=== PATIENT | male | born 1960 | race Caucasian/White ===

== ENCOUNTER → 2020-03-06 08:41 | Outpatient (CLI) | payer OTHER, SELFPAY ==
--- NOTE | 2020-03-06 08:47 | DI.RAD.S_ITS ---
PROCEDURE: XR CERVICAL SPINE 4V OR 5V INDICATIONS: Radiculopathy TECHNIQUE: 5 views of the cervical spine acquired. COMPARISON: None. FINDINGS: Bones: No fractures or dislocations to the T1 level. Oblique images demonstrate no bony foraminal stenoses. There is a moderately severe degree of degenerative disc disease at C5-C6 and C6-C7, with anterior and posterior projecting osteophytes. On the oblique views foraminal stenosis appears present to a mild to moderate degree at these 2 levels, most prominent at C5-6. Soft tissues: No prevertebral soft tissue swelling. IMPRESSION: No trauma found. No subluxation present. Moderately severe degenerative disc disease and facet osteoarthritis from C5-C7 to the degree that significant spinal and foraminal stenosis likely would be present, symmetric. Dictated by: Antonino Betancourt M.D. on 03/06/2020 at 9:42 Approved by: Antonino Betancourt M.D. on 03/06/2020 at 9:43
--- NOTE | 2020-03-06 08:47 | DI.RAD.S_ITS ---
PROCEDURE: XR LUMBAR SPINE MIN 4V INDICATIONS: Radiculopathy TECHNIQUE: 4 views of the lumbar spine were acquired. COMPARISON: None. FINDINGS: Bones: 5 nonrib-bearing vertebrae are present. There is normal bony alignment. Degenerative disc disease is only mild along the lumbosacral spine. Facet osteoarthritis becomes progressively more prominent from L3 inferiorly and most pronounced at L5-S1. No vertebral body compression fractures. No suspicious bony lesions. Soft tissues: Overlying bowel gas pattern is normal. No suspicious soft tissue calcifications. Oblique images: No pars defects. IMPRESSION: The degenerative changes along the LS spine are relatively mild at the disc spaces but more prominent at the facet joints especially L4-5 and L5-S1. Dictated by: Antonino Betancourt M.D. on 03/06/2020 at 9:43 Approved by: Antonino Betancourt M.D. on 03/06/2020 at 9:44
== END ==
PROVIDERS: Referring Provider Physical Medicine & Rehabilitation; Visit Provider Physical Medicine & Rehabilitation
DX: M50.122 Cervical disc disorder at C5-C6 level with radiculopathy (principal); M47.22 Other spondylosis with radiculopathy, cervical region; M51.17 Intervertebral disc disorders with radiculopathy, lumbosacral region; M47.26 Other spondylosis with radiculopathy, lumbar region; M47.27 Other spondylosis with radiculopathy, lumbosacral region
CPT/HCPCS: 72050; 72110

== ENCOUNTER → 2020-05-03 18:37 | Outpatient (CLI) | payer OTHER, SELFPAY ==
--- NOTE | 2020-05-03 18:40 | DI.RAD.S_ITS ---
PROCEDURE: XR SHOULDER RT MIN 2V INDICATIONS: Right shoulder impingement syndrome TECHNIQUE: 3 views of the shoulder were acquired. COMPARISON: None. FINDINGS: Bones: High-riding humeral head which may indicate rotator cuff tear. No fractures or dislocations. No suspicious bony lesions. Visualized ribs appear intact. Soft tissues: No suspicious soft tissue calcifications. IMPRESSION: High-riding humeral head which may indicate chronic rotator cuff tear. Dictated by: Lizandro Ferguson M.D. on 05/03/2020 at 19:24 Approved by: Lizandro Ferguson M.D. on 05/03/2020 at 19:25
--- NOTE | 2020-05-03 18:40 | DI.MRI.S_ITS ---
PROCEDURE: MR CERVICAL SPINE WO CON INDICATIONS: Cervical stenosis TECHNIQUE: Noncontrast sagittal T1 spin echo and T2 fast spin echo, sagittal STIR, foraminal oblique sagittal T2 fast spin echo, and axial gradient echo or T2 fast spin echo through the cervical spine. COMPARISON: None. FINDINGS: Image quality: Excellent. Alignment and Curvature: Loss of normal cervical lordosis. Mild grade 1 retrolisthesis of C3 on C4 and C4 on C5. Bone Marrow: Marrow demonstrates normal overall signal. Mild reactive signal within the endplates adjacent to the C2-C3, C3-C4, C4-C5, C5-C6, C6-C7, and C7-T1 intervertebral discs. Spinal Cord: Visualized spinal cord has normal size . Within the upper thoracic spine extending from the T2 level inferiorly, there is a high T2 intensity focus within the central substance of the cord measuring roughly 2 mm in diameter, seen on the sagittal views only. No cerebellar tonsillar herniation. Paraspinous Soft Tissues: No paravertebral masses. Prevertebral soft tissues are normal in thickness. C2-C3: Congenital canal stenosis. Moderate disc desiccation. Mild diffuse disc bulge. Mild facet and uncovertebral hypertrophy. Mild canal stenosis. Mild bilateral foraminal stenosis. C3-C4: Congenital canal stenosis. Moderate disc desiccation. Mild diffuse disc bulge with superimposed left paracentral protrusion. Mild facet and uncovertebral hypertrophy bilaterally. Moderate to severe canal stenosis. Minimal left cord flattening. Severe bilateral foraminal stenosis with bilateral C4 nerve root compression. C4-C5: Congenital canal stenosis. Moderate disc desiccation. Mild diffuse disc bulge with superimposed central small protrusion. Mild facet and uncovertebral hypertrophy bilaterally. Moderate to severe canal stenosis. Minimal anterior cord flattening. Severe right and mild left foraminal stenosis. Right C5 nerve root compression. C5-C6: Moderate disc height loss and desiccation. Mild diffuse disc bulge. Congenital canal stenosis. Moderate facet and uncovertebral hypertrophy bilaterally. Moderate to severe canal stenosis. Severe bilateral foraminal stenosis. Bilateral C6 nerve root compression. C6-C7: Congenital canal stenosis. Moderate disc height loss and desiccation. Mild diffuse disc bulge with superimposed broad-based left paracentral protrusion. Moderate facet and uncovertebral hypertrophy bilaterally. Severe canal stenosis. Mild cord flattening. Moderate bilateral foraminal stenosis. C7-T1: Congenital canal stenosis. Moderate disc desiccation. Mild disc height loss. Mild diffuse disc bulge. Mild facet and uncovertebral hypertrophy bilaterally. Moderate canal stenosis. Mild bilateral foraminal stenosis. IMPRESSION: 1. 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 2. Multilevel degenerative disc and facet disease, as well as uncovertebral hypertrophy, superimposed on diffuse congenital canal stenosis. 3. Multilevel canal stenosis, worst at C3-C4, C4-C5, and C6-C7, where there is cord flattening present. 4. Multilevel foraminal stenosis, worst at C3-C4, C4-C5, and C5-C6, where there is associated intraforaminal nerve root compression. Recommend correlation with clinical symptoms to ascertain relevance of these findings. Dictated by: Nidia Loaiza M.D. on 05/06/2020 at 10:23 Approved by: Nidia Loaiza M.D. on 05/06/2020 at 10:29
== END ==
PROVIDERS: PCP Physician Assistant Medical; Referring Provider Physical Medicine & Rehabilitation; Visit Provider Physical Medicine & Rehabilitation
DX: M50.11 Cervical disc disorder with radiculopathy, high cervical region (principal); M75.41 Impingement syndrome of right shoulder; M48.02 Spinal stenosis, cervical region
CPT/HCPCS: 72141; 73030

== ENCOUNTER → 2020-06-14 16:28 | Outpatient (CLI) | payer OTHER, SELFPAY ==
--- NOTE | 2020-06-14 16:31 | DI.MRI.S_ITS ---
PROCEDURE: MR THORACIC SPINE WO/W CON INDICATIONS: SYRINX TECHNIQUE: Noncontrast sagittal T1 spin echo and T2 fast spin echo, sagittal STIR, axial T1 and T2 fast spin echo through the thoracic spine. After the administration of contrast, axial and sagittal T1 spin echo with fat saturation through the thoracic spine. COMPARISON: [facility], MR, MR CERVICAL SPINE WO CON, 05/03/2020, 19:22. [facility], CR, XR LUMBAR SPINE MIN 4V, 03/06/2020, 8:46. [facility], CR, XR CERVICAL SPINE 4V OR 5V, 03/06/2020, 8:46. FINDINGS: Image quality: Excellent. Alignment and curvature: There is normal bony alignment. Marrow: Marrow is of normal overall signal. No acute vertebral body compression fractures. Spinal cord: There is mild T2 prominence of the central canal from C7, T2 through T9 with another focus at T11-T12. The greatest dimension of the intramedullary T2 focus measures approximately1.4 mm. Visualized spinal cord demonstrates no abnormal enhancement. Paraspinous soft tissues: No paravertebral masses or abnormal enhancement. Miscellaneous: The foramina appear widely patent at all scanned levels. Mild disc bulges present at T3-4, T5-6, T6-7, right posterior central protrusion at T7-8 with slight indentation of the anterior thecal sac, similar appearance at T8-9, posterior central protrusion at T9-10, mild bulge T11-12, T12-L1. IMPRESSION: 1. Mild T2 intramedullary signal prominence within the visualized cervical and thoracic cord as above. Given measurements, finding is suspicious for congenital variation of mild prominence of the central canal rather than true syrinx. It is noted that a similar appearance is only noted at C7 and not at more superior portions of the cervical spine. 2. Multilevel disc bulges and protrusions as above. Dictated by: Annabella Herring M.D. on 06/17/2020 at 8:49 Approved by: Annabella Herring M.D. on 06/17/2020 at 9:08
== END ==
PROVIDERS: PCP Physician Assistant Medical; Referring Provider Physical Medicine & Rehabilitation; Visit Provider Physical Medicine & Rehabilitation
DX: G95.0 Syringomyelia and syringobulbia (principal); M51.24 Other intervertebral disc displacement, thoracic region
CPT/HCPCS: 72157; A9579

== ENCOUNTER → 2020-11-11 07:24 | Outpatient (CLI) | payer OTHER, SELFPAY ==
--- NOTE | 2020-11-11 07:26 | DI.RAD.S_ITS ---
PROCEDURE: XR LUMBAR SPINE MIN 4V INDICATIONS: BACK PAIN TECHNIQUE: 5 views of the lumbar spine were acquired, including bilateral oblique views. COMPARISON: [facility], CR, XR LUMBAR SPINE MIN 4V, 03/06/2020, 8:46. FINDINGS: Bones: 5 nonrib-bearing vertebrae are present. There is normal bony alignment. No vertebral body compression fractures. No suspicious bony lesions. There is a mild degree of degenerative disc height reduction at T12-L1 and along the lumbosacral spine only minimal degenerative disc disease is found. However, facet osteoarthritis is mild at L 3-4, and mild to moderate at L4-5 and slightly more prominent at L5-S1. Soft tissues: Overlying bowel gas pattern is normal. No suspicious soft tissue calcifications. Oblique images: No pars defects. IMPRESSION: Only a small degree of degenerative disc disease is seen. Facet osteoarthritis, ever is more prominent and best seen at L4-5 and L5-S1. Subluxation is not associated. Dictated by: Antonino Betancourt M.D. on 11/11/2020 at 9:06 Approved by: Antonino Betancourt M.D. on 11/11/2020 at 9:07
== END ==
PROVIDERS: PCP Physician Assistant Medical; Referring Provider Physical Medicine & Rehabilitation; Visit Provider Physical Medicine & Rehabilitation
DX: M47.816 Spondylosis without myelopathy or radiculopathy, lumbar region (principal); M47.817 Spondylosis without myelopathy or radiculopathy, lumbosacral region; M75.42 Impingement syndrome of left shoulder; M54.12 Radiculopathy, cervical region; M47.812 Spondylosis without myelopathy or radiculopathy, cervical region; G95.0 Syringomyelia and syringobulbia
CPT/HCPCS: 20611; 72110; 99213; J1040

== ENCOUNTER → 2020-12-23 13:40 | Outpatient (CLI) | payer OTHER, SELFPAY ==
--- NOTE | 2020-12-23 13:41 | DI.RAD.S_ITS ---
PROCEDURE: XR SHOULDER LT MIN 2V INDICATIONS: LEFT SHOULDER PAIN TECHNIQUE: 3 views of the shoulder were acquired. COMPARISON: [facility], CR, XR SHOULDER RT MIN 2V, 05/03/2020, 19:05. FINDINGS: Bones: No fracture. Moderate left shoulder joint degeneration. Scattered degenerative subchondral sclerosis and spurring. Soft tissues: No suspicious soft tissue calcifications. IMPRESSION: Moderate left shoulder joint degeneration. If the patient's pain or other symptoms persist, consider further evaluation with MRI Dictated by: Los Pimentel M.D. on 12/23/2020 at 15:11 Approved by: Los Pimentel M.D. on 12/23/2020 at 15:14
== END ==
PROVIDERS: PCP Physician Assistant Medical; Referring Provider Physical Medicine & Rehabilitation; Visit Provider Physical Medicine & Rehabilitation
DX: M75.42 Impingement syndrome of left shoulder (principal); M19.012 Primary osteoarthritis, left shoulder; M75.41 Impingement syndrome of right shoulder; G95.0 Syringomyelia and syringobulbia; M54.12 Radiculopathy, cervical region; M47.816 Spondylosis without myelopathy or radiculopathy, lumbar region
CPT/HCPCS: 20611; 73030; 99213; J1040

== ENCOUNTER 2021-11-21 06:52 | Emergency (ER) | payer OTHER, SELFPAY ==
[2021-11-21] VITALS (12 sets, daily range): BP systolic 128–154; BP diastolic 81–95; PULSE 73–93; RESP 14–24; TEMP 36.6–36.9; O2SAT 89–99; BMI 28.5
--- NOTE | 2021-11-21 07:18 | DI.CT.S_ITS ---
PROCEDURE: CT STROKE INDICATIONS: Altered mental status TECHNIQUE: Noncontrast 4.5 mm thick angled axial sections acquired from the foramen magnum to the vertex, with coronal reformats. For radiation dose reduction, the following was used: automated exposure control, adjustment of mA and/or kV according to patient size. COMPARISON: None. FINDINGS: Image quality: Excellent. CSF spaces: Basal cisterns are patent. No extra-axial fluid collections. Ventricles are normal in size and shape. Brain: No midline shift. No intracranial masses or hemorrhage. Valentino-white matter interface is normal. Skull and face: Calvarium and visualized facial bones are intact, without suspicious lesions. Sinuses: Mucosal thickening or mucous retention cyst in the right maxillary sinus. Visualized sinuses and mastoids are clear. IMPRESSION: No acute intracranial abnormality. This study fulfills neurological imaging criteria for inclusion or exclusion of acute stroke therapies based on available published neurological imaging guidelines. Dictated by: Abelardo Diaz M.D. on 11/21/2021 at 7:42 Approved by: Abelardo Diaz M.D. on 11/21/2021 at 7:44
--- NOTE | 2021-11-21 07:20 | ED_ITS ---
HPI - Altered Mental Status General Chief Complaint: Altered Mental Status Stated Complaint: memory problems, confused, Covid+ Time Seen by Provider: 11/21/21 07:05 Source: patient and family Mode of arrival: Ambulatory History of Present Illness HPI narrative: Code stroke was called. Patient brought here by . For altered mental status. He awoke at 5:00 a.m. today and started his day with feeding the dog and getting a coffee. At 5:20 a.m. states he kept on repeating about what he was supposed to do today. He is very important meeting at 8:00 a.m.. He was unsure what it was for. No numbness tingling weakness facial droop or headache. Patient is starting to improve. It took time for him to get oriented to time and date. Patient denies any problems yesterday. Went to bed last night without any difficulties. He has been under lot of stress. Both of his parents are in the hospital with COVID. His meeting his very important this morning, however he could not recall the details of it. Was COVID positive but has tested negative in the past week. Related Data Home Medications Medication Instructions Recorded Confirmed amlodipine 10 mg-atorvastatin 40 1 tab PO DAILY 03/06/20 06/19/21 mg tablet aripiprazole 5 mg tablet (Abilify) 5 mg PO BEDTIME 03/06/20 06/19/21 cholecalciferol (vitamin D3) 1,250 1,250 mcg PO 3XW cap 03/06/20 06/19/21 mcg (50,000 unit) capsule desvenlafaxine succinate 50 mg 50 mg PO DAILY 03/06/20 06/19/21 tablet,extended release 24 hr (Pristiq) fenofibrate nanocrystallized 145 145 mg PO DAILY 03/06/20 06/19/21 mg tablet lamotrigine 25 mg tablet (Lamictal) 75 mg PO ONCE tab 03/06/20 06/19/21 msm/glucosamine PO BID 03/06/20 06/19/21 Previous Rx's Medication Instructions Recorded alprazolam 0.5 mg tablet 0.25 mg PO BEDTIME PRN #30 tab 04/29/20 diclofenac sodium 75 mg See Rx Instructions .ROUTE 11/06/21 tablet,delayed release .COMPLEX #60 tab Allergies Allergy/AdvReac Type Severity Reaction Status Date / Time tizanidine [From Marthanaflex] AdvReac Severe liver Verified 06/19/21 13:03 enzymes when very high buspirone [From BuSpar] AdvReac Unknown lost Verified 06/19/21 13:03 memory Sulfa (Sulfonamide AdvReac Unknown rash- Verified 06/19/21 13:03 Antibiotics) Review of Systems Review of Systems Narrative: GENERAL: Denies chills, fatigue, malaise, fever, sweats. HEENT: Denies sinus pain, ear pain, sore throat RESPIRATORY: Denies dyspnea, cough CARDIOVASCULAR: Denies chest pain, palpitations GASTROINTESTINAL: Denies nausea, vomiting, abdominal pain : Denies dysuria, frequency, hematuria MUSCULOSKELETAL: denies muscle or bony pain SKIN: Denies rash, skin lesions NEUROLOGIC: Denies weakness, numbness, positive for altered mental status, negative headache. ROS Unobtainable: All systems reviewed & are unremarkable except as noted in HPI and below Patient History Medical History Cervical facet joint syndrome Cervical radiculopathy Impingement syndrome of left shoulder Impingement syndrome of right shoulder Syrinx of spinal cord Surgical History H/O total hip arthroplasty Family History Mother Hypertension Heart attack Cervical stenosis of spine Mother Afib Arthritis Heart disease Congestive heart failure Gout Brother Heart attack Cervical stenosis of spine Brother Arthritis Cervical stenosis of spine Anxiety Social History Smoking Status: Current every day smoker Smoking Status: Current every day smoker Substance Use Type: does not use Exam Narrative Exam Narrative: GENERAL: in no distress, not toxic not dyspneic HEAD: Normocephalic. EYES: Pupils equal round No scleral icterus. ENT: Mucous membranes moist. NECK: Trachea midline. CARDIOVASCULAR: Regular rate and rhythm without murmurs RESPIRATORY: Clear to auscultation. Breath sounds equal bilaterally. No wheezes, rales, or rhonchi. GASTROINTESTINAL: Abdomen soft, non-tender EXTREMITIES: No gross deformities. BACK: No flank tenderness. NEURO: AOx3. Not oriented to time and date. Clear speech no facial droop steady self gait no foot drop. Light touch intact to bilateral face hands and feet. 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 Strong bilateral patellar reflexes. Steady Romberg, negative pronator drift. [id number] intact. SKIN: Warm and dry PSYCH: Not anxious, is cooperative Initial Vital Signs Initial Vital Signs: Vital Signs Pulse Rate 93 H 11/21/21 07:00 Pulse Oximetry 99 11/21/21 07:00 Scores NIH Stroke Scale Level of Conciousness: Alert, keenly responsive Ask month/age: Answers both questions correctly. Open/close eyes, close hand: Performs both tasks correctly Best gaze horizontal: Normal Visual huang: No visual loss Facial palsy: Normal symetrical movement Left arm drift: No drift for full 10 sec Right arm drift: No drift for full 10 sec Left leg drift: No drift for full 5 sec Right leg drift: No drift for full 5 sec Limb ataxia: Absent Sensory on face/arms/legs: Normal, no sensory loss Best language: No aphasia, normal Dysarthria: Normal Extinction or inattention: No abnormality Total NIH Stroke scale score: 0 Course Course Course Narrative: No new issues during course of stay Orders Ordered: ED Orders 11/21/21 07:18 CT Stroke Stat EKG-12 Lead Stat 11/21/21 07:28 Complete Blood Count AUTO DIFF Stat Comprehensive Metabolic Panel Stat Partial Thromboplastin Time Stat Prothrombin Time INR Stat Troponin & CK Cardiac Panel Stat 11/21/21 07:46 CT angio head and neck Stat 11/21/21 08:37 MR head/brain wo con Stat 11/21/21 09:05 Urine Drug Screen, Rapid Stat Urine Microscopic Stat Discontinued Medications Sodium Chloride (Normal Saline 0.9%) 500 mls @ 1,000 mls/hr IV BOLUS ONE Stop: 11/21/21 07:49 Last Infusion: 11/21/21 09:30 Dose: 0 mls/hr Documented by: Admin: 11/21/21 08:04 Dose: 1,000 mls/hr Documented by: KEILY Reevaluation(s) Reevaluation #1: Reviewed results with patient and . Patient has resolved symptoms. No new or further complaints. He is awake alert or x4 at this time. They agree with discharge and return precautions given. Reviewed with him likely stress has provoked this event this morning Time: 10:42 Consultations Consultation #1: Spoke with tele stroke neurologist dr lopes, at this time, no tPA indicated. Likely transient global amnesia. Stress is a very common source of amnesia. Agrees for MRI and stable for discharge home Time: 07:50 Vital Signs Vital signs: Vital Signs - 8 hr 11/21/21 08:00 11/21/21 08:30 11/21/21 09:00 Temperature Pulse Rate 83 79 76 Respiratory Rate 18 21 24 Blood Pressure 134/81 139/90 139/85 Pulse Oximetry 94 95 98 11/21/21 09:30 11/21/21 10:17 11/21/21 10:30 Temperature Pulse Rate 73 82 Respiratory Rate 21 Blood Pressure 128/84 Pulse Oximetry 98 98 89 L 11/21/21 11:01 Temperature 97.9 F Pulse Rate 76 Respiratory Rate 20 Blood Pressure 151/90 H Pulse Oximetry 98 MDM - Altered Mental Status Differential Diagnosis Differential diagnosis: Likely altered mental status and other (TIA/stroke/global amnesia/anxiety) Lab Data Result diagrams: 11/21/21 07:28 11/21/21 07:28 Labs: Lab Results 11/21/21 11/21/21 11/21/21 Range/Units 07:28 07:28 07:28 WBC 3.3 L (4.5-11.0) X10^3/uL RBC 4.71 (4.5-5.9) X10^6/uL Hgb 15.5 (13.5-17.5) g/dL Hct 45.2 (41-53) % MCV 96.1 (80-100) fL MCH 32.9 (26-34) PG MCHC 34.2 (30-36) % RDW 12.4 (11.6-14.8) % Plt Count 133 L (150-400) X10^3/uL Neut % (Auto) Not Reportable Lymph % (Auto) Not Reportable [place] % (Auto) Not Reportable Eos % (Auto) Not Reportable Baso % (Auto) Not Reportable Lymph # (Auto) Not Reportable [place] # (Auto) Not Reportable Baso # (Auto) Not Reportable Total Counted 100 Seg Neutrophils % 55.0 (38-70) % Band Neutrophils % 7.0 (3-7) % Lymphocytes % (Manual) 32.0 (25-45) % Atypical Lymphs % 1.0 H ( - 0) % Monocytes % (Manual) 5.0 (2-11) % Neutrophils # (Manual) 2046 L (0764-3403) /uL RBC Morphology Normal morphology PT 10.9 (10.1-12.7) SECONDS INR 1.0 (0.9-1.3) APTT 29 (26.4-36.2) SECONDS Sodium 139 (137-145) mmol/L Potassium 3.9 (3.4-5.1) mmol/L Chloride 106 (98-107) mmol/L Carbon Dioxide 27 (22-32) mmol/L BUN 17 (9-20) mg/dL Creatinine 1.05 (0.66-1.25) mg/dL Estimated GFR > 60.0 (>60) mL/min BUN/Creatinine Ratio 16.2 (6-22) Glucose 128 H (80-110) mg/dL Calcium 9.4 (8.4-10.2) mg/dL Total Bilirubin 0.6 (0.2-1.3) mg/dL AST 54 (17-59) IU/L ALT 60 H (<50) IU/L Alkaline Phosphatase 39 (38-126) U/L Total Creatine Kinase 86 (55-170) U/L CK-MB (CK-2) TNP CK-MB (CK-2) Rel Index TNP Troponin I < 0.012 (0.01-0.034) ng/mL Total Protein 7.4 (6.3-8.2) g/dL Albumin 4.3 (3.5-5.0) g/dL Globulin 3.1 (1.7-4.1) g/dL Albumin/Globulin Ratio 1.4 (1.0-2.8) Urine RBC (0-5/HPF) Urine WBC (0-5/HPF) Urine Bacteria (None) Ur Culture Indicated? U Opiates 300ng/mL cut (Negative) Ur Oxycodone Screen (Negative) Urine Methadone Screen (Negative) Ur Barbiturates Screen (Negative) U Tricyclic Antidepress (Negative) Ur Phencyclidine Scrn (Negative) Ur Amphetamines Screen (Negative) U Methamphetamines Scrn (Negative) Ur MDMA Scrn (Ecstasy) (Negative) U Benzodiazepines Scrn (Negative) Urine Cocaine Screen (Negative) U Marijuana (THC) Screen (Negative) 11/21/21 11/21/21 Range/Units 09:05 09:05 WBC (4.5-11.0) X10^3/uL RBC (4.5-5.9) X10^6/uL Hgb (13.5-17.5) g/dL Hct (41-53) % MCV (80-100) fL MCH (26-34) PG MCHC (30-36) % RDW (11.6-14.8) % Plt Count (150-400) X10^3/uL Neut % (Auto) Lymph % (Auto) [place] % (Auto) Eos % (Auto) Baso % (Auto) Lymph # (Auto) [place] # (Auto) Baso # (Auto) Total Counted Seg Neutrophils % (38-70) % Band Neutrophils % (3-7) % Lymphocytes % (Manual) (25-45) % Atypical Lymphs % ( - 0) % Monocytes % (Manual) (2-11) % Neutrophils # (Manual) (3790-3910) /uL RBC Morphology PT (10.1-12.7) SECONDS INR (0.9-1.3) APTT (26.4-36.2) SECONDS Sodium (137-145) mmol/L Potassium (3.4-5.1) mmol/L Chloride (98-107) mmol/L Carbon Dioxide (22-32) mmol/L BUN (9-20) mg/dL Creatinine (0.66-1.25) mg/dL Estimated GFR (>60) mL/min BUN/Creatinine Ratio (6-22) Glucose (80-110) mg/dL Calcium (8.4-10.2) mg/dL Total Bilirubin (0.2-1.3) mg/dL AST (17-59) IU/L ALT (<50) IU/L Alkaline Phosphatase (38-126) U/L Total Creatine Kinase (55-170) U/L CK-MB (CK-2) CK-MB (CK-2) Rel Index Troponin I (0.01-0.034) ng/mL Total Protein (6.3-8.2) g/dL Albumin (3.5-5.0) g/dL Globulin (1.7-4.1) g/dL Albumin/Globulin Ratio (1.0-2.8) Urine RBC None seen (0-5/HPF) Urine WBC None seen (0-5/HPF) Urine Bacteria Occasional (0-1) (None) Ur Culture Indicated? Cult not indicated U Opiates 300ng/mL cut Negative (Negative) Ur Oxycodone Screen Negative (Negative) Urine Methadone Screen Negative (Negative) Ur Barbiturates Screen Negative (Negative) U Tricyclic Antidepress Negative (Negative) Ur Phencyclidine Scrn Negative (Negative) Ur Amphetamines Screen Negative (Negative) U Methamphetamines Scrn Negative (Negative) Ur MDMA Scrn (Ecstasy) Negative (Negative) U Benzodiazepines Scrn Negative (Negative) Urine Cocaine Screen Negative (Negative) U Marijuana (THC) Screen Negative (Negative) Point of Care Testing Glucose POC [address] scan - head: Radiologist's Impression: [address] [address] [address] Scan Report Signed Patient: Jacek Mejia MR#: [id number] : 1960 Acct:[id number] Age/Sex: 61 / M Date of Service: 11/21/21 Loc: ED Accession Number: [id number] ?? Procedure: CT Stroke Ordering Provider: Orlando Ceballos MD PROCEDURE:? CT STROKE ? INDICATIONS:? Altered mental status ? TECHNIQUE:? Noncontrast 4.5 mm thick angled axial sections acquired from the foramen magnum to the vertex, with coronal reformats.? For radiation dose reduction, the following was used:? automated exposure control, adjustment of mA and/or kV according to patient size.? ? COMPARISON:? None. ? FINDINGS:? Image quality:? Excellent.? ? CSF spaces:? Basal cisterns are patent.? No extra-axial fluid collections.? Ventricles are normal in size and shape.? ? Brain:? No midline shift.? No intracranial masses or hemorrhage.? Valentino-white matter interface is normal.? ? Skull and face:? Calvarium and visualized facial bones are intact, without suspicious lesions.? ? Sinuses:? Mucosal thickening or mucous retention cyst in the right maxillary sinus.? Visualized sinuses and mastoids are clear.? ? IMPRESSION:? No acute intracranial abnormality. ? This study fulfills neurological imaging criteria for inclusion or exclusion of acute stroke therapies based on available published neurological imaging guidelines.? ? ? Dictated by: Abelardo Diaz M.D. on 11/21/2021 at 7:42 ? ? Approved by: Abelardo Diaz M.D. on 11/21/2021 at 7:44 ? CTA - brain/neck: Radiologist's Impression: [address] [address] [address] Scan Report Signed Patient: Jacek Mejia MR#: [id number] : 1960 Acct:[id number] Age/Sex: 61 / M Date of Service: 11/21/21 Loc: ED Accession Number: [id number] ?? Procedure: CT angio head and neck Ordering Provider: Orlando Ceballos MD PROCEDURE:? CT ANGIO HEAD AND NECK ? INDICATIONS:? Altered mental status ? TECHNIQUE:? After the administration of intravenous contrast, 1.5 mm axial sections acquired from the aortic arch to the [place] of [place].? Maximum intensity projection (MIP) reformats were then performed.? ? COMPARISON:? [facility], CT, CT STROKE, 11/21/2021, 7:31. ? FINDINGS:? Image quality:? Mild motion artifacts.? ? Carotid system:? The great vessels demonstrate a conventional anatomy as they arise from the aortic arch.? The origins of the common carotid arteries appear patent.? The common carotid arteries demonstrate normal calibers and courses.? The bifurcation regions appear normal bilaterally.? The internal carotid arteries demonstrate normal caliber and course. ? ? Posterior circulation:? The origins of the vertebral arteries appear patent.? The more superior portions of the vertebral arteries demonstrate normal course and caliber.? They join to form a normal appearing basilar artery.? ? Soft tissues:? Visualized neck soft tissues demonstrate no suspicious abnormalities.? Thyroid gland unremarkable.? ? Bones:? No suspicious bony lesions.? There is a mucous retention cyst or polyp in the right maxillary sinus.? Visualized cervical spine appears normally aligned.? Moderate degenerative disc and facet disease. ? IMPRESSION:? ? 1. No acute intracranial abnormalities. ? 2. No hemodynamic significant stenosis in anterior or posterior circulations. ? 3. No hemodynamic significant stenosis in cervical carotid arteries or vertebral arteries bilaterally. ? ? Any quantitative stenosis measurements were performed using the NASCET criteria.? ? ? Dictated by: Nurys Bartholomew M.D. on 11/21/2021 at 8:20 ? ? Approved by: Nurys Bartholomew M.D. on 11/21/2021 at 8:24 ? MRI brain: Radiologist's Impression: [address] [address] Magnetic Resonance Report Signed Patient: Jacek Mejia MR#: [id number] : 1960 Acct:[id number] Age/Sex: 61 / M Date of Service: 11/21/21 Loc: ED Accession Number: [id number] ?? Procedure: MR head/brain wo con Ordering Provider: Orlando Ceballos MD PROCEDURE:? MR HEAD/BRAIN WO CON ? INDICATIONS:? Altered mental status ? TECHNIQUE:? Non-contrast axial T1 spin echo, axial T2 fast spin echo, sagittal and axial FLAIR, coronal T2 fast spin echo, axial gradient echo, axial diffusion and ADC through the brain.? ? COMPARISON:? [facility], CT, CT ANGIO HEAD AND NECK, 11/21/2021, 7:31.? [facility], CT, CT STROKE, 11/21/2021, 7:31. ? FINDINGS:? Image quality:? Excellent.? ? CSF spaces:? Ventricles appear symmetric in size and shape.? Basal cisterns are patent.? No extra-axial fluid collections.? ? Brain:? No intracranial bleeds or mass effects.? There is cerebral volume loss for age.? There are periventricular and deep white matter chronic small vessel ischemic changes.? Brainstem appears normal.? Diffusion-weighted images show no acute ischemic insults.? No chronic ischemic insults.? Normal intravascular flow voids are present.? ? Skull and face:? Calvarial bone marrow is normal in signal.? Orbits are normal.? ? Sinuses:? There is a right maxillary sinus mucous retention cyst incidentally noted.? Sinuses and mastoids are otherwise clear.? ? IMPRESSION:? No findings of acute or subacute infarction can be seen. ? ? Dictated by: Nacho Darling M.D. on 11/21/2021 at 9:20 ? ? Approved by: Nacho Darling M.D. on 11/21/2021 at 9:21 ? ECG Data Interpretation: Normal sinus rhythm rate [address] elevation or depression. MDM Narrative Medical decision making narrative: Appropriate for discharge home. Exam and imaging and laboratory studies reassuring. Reviewed with tele stroke neurologist and agrees likely transient global amnesia secondary to a lot of stress. Reviewed with patient and . They agree with treatment plan. Return precautions reviewed with them. Not toxic at discharge. Discharge Plan Departure Patient Disposition: Home Clinical Impression: Amnesia, global, transient Instructions: Get a Handle on Stress with Physical Fitness, Amnesia Activity Restrictions/Additional Instructions: Return if worse if any questions or concerns. See family doctor next week for recheck. Be sure to take time to try to relax and enjoy time with you and family. Prescriptions: No Action alprazolam 0.5 mg tablet 0.25 mg PO BEDTIME PRN (Reason: anxiety) Qty: 30 0RF diclofenac sodium 75 mg tablet,delayed release (DR/EC) See Rx Instructions .ROUTE .COMPLEX Qty: 60 3RF Dose Instruction: TAKE 1 TABLET BY MOUTH TWICE DAILY Rx Instructions: TAKE 1 TABLET BY MOUTH TWICE DAILY cholecalciferol (vitamin D3) 1,250 mcg (50,000 unit) capsule 1,250 mcg PO 3XW 0RF aripiprazole [Abilify] 5 mg tablet 5 mg PO BEDTIME 0RF lamotrigine [Lamictal] 25 mg tablet 75 mg PO ONCE 0RF desvenlafaxine succinate [Pristiq] 50 mg tablet extended release 24 hr 50 mg PO DAILY 0RF amlodipine-atorvastatin 10-40 mg tablet 1 tab PO DAILY 0RF fenofibrate nanocrystallized 145 mg tablet 145 mg PO DAILY 0RF msm/glucosamine PO BID 0RF Referrals: Fidelia Richardson PA-C [Primary Care Provider] -
--- NOTE | 2021-11-21 07:30 | PC.NURSE ---
to ct per stretcher
[2021-11-21 07:45] LABS: Hematocrit 45.2 % (41-53); Hemoglobin 15.5 g/dL (13.5-17.5); Mean Corpuscular HGB Conc 34.2 % (30-36); Mean Corpuscular Hemoglobin 32.9 PG (26-34); Mean Corpuscular Volume 96.1 fL (80-100); Platelet Count 133 X10^3/uL (150-400); Red Blood Cell Count 4.71 X10^6/uL (4.5-5.9); Red Cell Distribution Width 12.4 % (11.6-14.8); White Blood Cell Count 3.3 X10^3/uL (4.5-11.0)
--- NOTE | 2021-11-21 07:45 | RT ---
Responded to Code stroke, pt alert and patient airway with no distress noted and on room air.
[2021-11-21 07:46] LABS: Prothrombin Time 10.9 SECONDS (10.1-12.7)
--- NOTE | 2021-11-21 07:46 | DI.CT.S_ITS ---
PROCEDURE: CT ANGIO HEAD AND NECK INDICATIONS: Altered mental status TECHNIQUE: After the administration of intravenous contrast, 1.5 mm axial sections acquired from the aortic arch to the [place] of [place]. Maximum intensity projection (MIP) reformats were then performed. COMPARISON: [facility], CT, CT STROKE, 11/21/2021, 7:31. FINDINGS: Image quality: Mild motion artifacts. Carotid system: The great vessels demonstrate a conventional anatomy as they arise from the aortic arch. The origins of the common carotid arteries appear patent. The common carotid arteries demonstrate normal calibers and courses. The bifurcation regions appear normal bilaterally. The internal carotid arteries demonstrate normal caliber and course. Posterior circulation: The origins of the vertebral arteries appear patent. The more superior portions of the vertebral arteries demonstrate normal course and caliber. They join to form a normal appearing basilar artery. Soft tissues: Visualized neck soft tissues demonstrate no suspicious abnormalities. Thyroid gland unremarkable. Bones: No suspicious bony lesions. There is a mucous retention cyst or polyp in the right maxillary sinus. Visualized cervical spine appears normally aligned. Moderate degenerative disc and facet disease. IMPRESSION: 1. No acute intracranial abnormalities. 2. No hemodynamic significant stenosis in anterior or posterior circulations. 3. No hemodynamic significant stenosis in cervical carotid arteries or vertebral arteries bilaterally. Any quantitative stenosis measurements were performed using the NASCET criteria. Dictated by: Nurys Bartholomew M.D. on 11/21/2021 at 8:20 Approved by: Nurys Bartholomew M.D. on 11/21/2021 at 8:24
[2021-11-21 07:49] LABS: PTT Partial Thromboplastin Tim 29 SECONDS (26.4-36.2)
[2021-11-21 07:55] LABS: Alanine Aminotransferase 60 IU/L (<50); Albumin 4.3 g/dL (3.5-5.0); Albumin Globulin Ratio 1.4 (1.0-2.8); Alkaline Phosphatase 39 U/L (38-126); Aspartate Aminotransferase 54 IU/L (17-59); BUN Creatinine Ratio 16.2 (6-22); Bilirubin Total 0.6 mg/dL (0.2-1.3); Blood Urea Nitrogen 17 mg/dL (9-20); Calcium 9.4 mg/dL (8.4-10.2); Carbon Dioxide 27 mmol/L (22-32); Chloride 106 mmol/L (98-107); Creatine Kinase 86 U/L (55-170); Estimated Glomerular Filt Rate > 60.0 mL/min (>60); Globulin 3.1 g/dL (1.7-4.1); Glucose 128 mg/dL (80-110); HEMOLYSIS < 15 (0-50); Potassium 3.9 mmol/L (3.4-5.1); Sodium 139 mmol/L (137-145); Total Protein 7.4 g/dL (6.3-8.2)
[2021-11-21] MEDS: SODIUM CHLORIDE 0.9% 500 ML 1000 ML IV (08:04)
[2021-11-21 08:06] LABS: Troponin I < 0.012 ng/mL (0.01-0.034)
[2021-11-21 08:11] LABS: Add Manual Diff / Slide Review YES
[2021-11-21 08:15] LABS: Neutrophils Absolute Manual 2046 /uL (3000-5900); RBC Morphology Normal Morphology; Total Cells Counted 100
--- NOTE | 2021-11-21 08:37 | DI.MRI.S_ITS ---
PROCEDURE: MR HEAD/BRAIN WO CON INDICATIONS: Altered mental status TECHNIQUE: Non-contrast axial T1 spin echo, axial T2 fast spin echo, sagittal and axial FLAIR, coronal T2 fast spin echo, axial gradient echo, axial diffusion and ADC through the brain. COMPARISON: [facility], CT, CT ANGIO HEAD AND NECK, 11/21/2021, 7:31. [facility], CT, CT STROKE, 11/21/2021, 7:31. FINDINGS: Image quality: Excellent. CSF spaces: Ventricles appear symmetric in size and shape. Basal cisterns are patent. No extra-axial fluid collections. Brain: No intracranial bleeds or mass effects. There is cerebral volume loss for age. There are periventricular and deep white matter chronic small vessel ischemic changes. Brainstem appears normal. Diffusion-weighted images show no acute ischemic insults. No chronic ischemic insults. Normal intravascular flow voids are present. Skull and face: Calvarial bone marrow is normal in signal. Orbits are normal. Sinuses: There is a right maxillary sinus mucous retention cyst incidentally noted. Sinuses and mastoids are otherwise clear. IMPRESSION: No findings of acute or subacute infarction can be seen. Dictated by: Nacho Darling M.D. on 11/21/2021 at 9:20 Approved by: Nacho Darling M.D. on 11/21/2021 at 9:21
[2021-11-21 09:17] LABS: UR Morphine/Opiate cutoff 300 Negative (Negative); Ur Creatinine Normal (Normal); Ur Specific Gravity Normal (Normal); Urine Amphetamines Negative (Negative); Urine Barbiturates Negative (Negative); Urine Benzodiazepines Negative (Negative); Urine Cocaine Negative (Negative); Urine MDMA Negative (Negative); Urine Methadone Negative (Negative); Urine Methamphetamines Negative (Negative); Urine Oxycodone Negative (Negative); Urine Phencyclidine Negative (Negative); Urine Tetrahydrocannabinol Negative (Negative); Urine Tricyclic Antidepressant Negative (Negative); Urine pH Normal (Normal)
[2021-11-21 09:26] LABS: Bacteria Urine Occasional (0-1); Culture Indicated Urine Cult Not Indicated; RBC Urine None Seen (0-5/HPF); WBC Urine None Seen (0-5/HPF)
== END 2021-11-21 11:02 | disposition home or self-care (01) ==
PROVIDERS: Emergency Provider Emergency Medicine; PCP Physician Assistant Medical
DX: G45.4 Transient global amnesia (principal); F17.200 Nicotine dependence, unspecified, uncomplicated
CPT/HCPCS: 36415; 70450; 70496; 70498; 70551; 80053; 80305; 81015; 82550; 82962; 84484; 85007; 85025; 85610; 85730; 93005; 96360; 99284

== ENCOUNTER → 2022-03-04 07:19 | Outpatient (CLI) | payer OTHER, SELFPAY ==
--- NOTE | 2022-03-04 07:21 | DI.RAD.S_ITS ---
PROCEDURE: XR HAND RT MIN 3V INDICATIONS: RIGHT HAND PAIN TECHNIQUE: 3 views of the hand(s) acquired. COMPARISON: None. FINDINGS: Joint space narrowing and small marginal osteophytes involving the 1st CMC, 1st MCP, 2nd MCP, 3rd MCP, 3rd DIP, 2nd DIP. No fracture or dislocation. No bony erosion or other suspicious lesion. Probable intraosseous ganglion cyst in the scaphoid. IMPRESSION: Multifocal mild osteoarthritis. Dictated by: Lizandro Ferguson M.D. on 03/04/2022 at 10:32 Approved by: Lizandro Ferguson M.D. on 03/04/2022 at 10:33
--- NOTE | 2022-03-04 07:21 | DI.RAD.S_ITS ---
PROCEDURE: XR HAND LT MIN 3V INDICATIONS: LEFT HAND PAIN TECHNIQUE: 3 views of the hand(s) acquired. COMPARISON: None. FINDINGS: Mild osteoarthritic changes characterized by joint space narrowing with small marginal osteophytes at the 1st CMC, 2nd through 4th metacarpophalangeal joints, and the 1st through 3rd distal interphalangeal joints. No acute fracture or dislocation. No suspicious lesion. IMPRESSION: Multifocal mild osteoarthritis. Dictated by: Lizandro Ferguson M.D. on 03/04/2022 at 10:30 Approved by: Lizandro Ferguson M.D. on 03/04/2022 at 10:32
== END ==
PROVIDERS: PCP Physician Assistant Medical; Referring Provider Physical Medicine & Rehabilitation; Visit Provider Physical Medicine & Rehabilitation
DX: M19.042 Primary osteoarthritis, left hand (principal); M19.041 Primary osteoarthritis, right hand; M79.642 Pain in left hand; M79.641 Pain in right hand; M75.42 Impingement syndrome of left shoulder; G95.0 Syringomyelia and syringobulbia; M54.12 Radiculopathy, cervical region; R20.2 Paresthesia of skin
CPT/HCPCS: 73130; 99213

== ENCOUNTER → 2023-08-25 10:13 | Outpatient (CLI) | payer OTHER, SELFPAY ==
--- NOTE | 2023-08-25 10:14 | DI.RAD.S_ITS ---
PROCEDURE: XR ANKLE RT MIN 3V INDICATIONS: RIGHT ANKLE PAIN TECHNIQUE: 3 views of the ankle were acquired. COMPARISON: None. FINDINGS: Bones: No fractures or dislocations. Ankle mortise is normally aligned. No suspicious bony lesions. Plantar calcaneal spur is present. Soft tissues: No tibiotalar joint effusion. Achilles tendon appears normal. IMPRESSION: No acute bony abnormality or significant effusion. Dictated by: Reggie Ashley M.D. on 08/25/2023 at 9:36 Approved by: Reggie Ashley M.D. on 08/25/2023 at 9:39
--- NOTE | 2023-08-25 10:14 | DI.RAD.S_ITS ---
PROCEDURE: XR FOOT RT MIN 3V INDICATIONS: RIGHT FOOT PAIN TECHNIQUE: 3 views of the foot were acquired. COMPARISON: None. FINDINGS: Bones: No fractures or dislocations. No suspicious bony lesions. Arthrodesis of the great toe metatarsophalangeal joint. Soft tissues: No tibiotalar joint effusion. Achilles tendon appears normal. IMPRESSION: Postoperative changes of great toe metatarsophalangeal joint arthrodesis. Dictated by: Reggie Ashley M.D. on 08/25/2023 at 9:33 Approved by: Reggie Ashley M.D. on 08/25/2023 at 9:35
--- NOTE | 2023-08-25 11:40 | DI.RAD.S_ITS ---
PROCEDURE: XR LUMBAR SPINE MIN 4V INDICATIONS: Right hip and LE symptoms TECHNIQUE: 5 views of the lumbar spine were acquired, including bilateral oblique views. COMPARISON: [facility], , XR LUMBAR SPINE MIN 4V, 11/11/2020, 7:32. FINDINGS: Bones: 5 nonrib-bearing vertebrae are present. Trace retrolisthesis L1 on 2 and L2 on 3. Endplate osteophytes at L1 and mild anterior vertebral body height loss. Mild multilevel disc height loss. No acute vertebral body compression fractures. No suspicious bony lesions. Left hip arthroplasty. Mild right hip degeneration. Soft tissues: Overlying bowel gas pattern is normal. No suspicious soft tissue calcifications. Oblique images: No pars defects. IMPRESSION: 1. Spondylosis and trace spondylolisthesis in the upper lumbar spine. Dictated by: Cele Hernandez M.D. on 08/25/2023 at 14:07 Approved by: Cele Hernandez M.D. on 08/25/2023 at 14:09
== END ==
PROVIDERS: PCP Physician Assistant Medical; Referring Provider Physical Medicine & Rehabilitation; Visit Provider Physical Medicine & Rehabilitation
DX: M79.671 Pain in right foot (principal); M25.571 Pain in right ankle and joints of right foot; M16.11 Unilateral primary osteoarthritis, right hip; M47.816 Spondylosis without myelopathy or radiculopathy, lumbar region; M43.16 Spondylolisthesis, lumbar region; G95.0 Syringomyelia and syringobulbia; M54.12 Radiculopathy, cervical region; M48.02 Spinal stenosis, cervical region; M75.41 Impingement syndrome of right shoulder; M72.2 Plantar fascial fibromatosis; Z98.1 Arthrodesis status
CPT/HCPCS: 72110; 73610; 73630; 99213

== ENCOUNTER → 2024-01-27 12:23 | Outpatient (CLI) | payer OTHER, SELFPAY ==
--- NOTE | 2024-01-27 12:27 | DI.RAD.S_ITS ---
PROCEDURE: XR LUMBAR SPINE MIN 4V INDICATIONS: BACK PAIN WORSE TECHNIQUE: 5 views of the lumbar spine were acquired, including bilateral oblique views. COMPARISON: , CR, XR LUMBAR SPINE MIN 4V, 08/25/2023, 11:51. , CR, XR LUMBAR SPINE MIN 4V, 11/11/2020, 7:32. FINDINGS: Bones: 5 nonrib-bearing vertebrae are present. Grade 1 retrolisthesis of L1 on L2. Mild disc height loss at all levels. Facet arthrosis of L3 through S1. Left hip arthroplasty. Soft tissues: Overlying bowel gas pattern is normal. No suspicious soft tissue calcifications. Oblique images: No pars defects. IMPRESSION: No acute, displaced fracture or traumatic subluxation. Stable mild, multilevel degenerative disc disease and lower lumbar facet arthrosis. Dictated by: Joshua Alarcon M.D. on 01/27/2024 at 14:18 Approved by: Joshua Alarcon M.D. on 01/27/2024 at 14:19
== END ==
PROVIDERS: PCP Physician Assistant Medical; Referring Provider Physical Medicine & Rehabilitation; Visit Provider Physical Medicine & Rehabilitation
DX: M47.816 Spondylosis without myelopathy or radiculopathy, lumbar region (principal); M51.36 Other intervertebral disc degeneration, lumbar region
CPT/HCPCS: 72110

== ENCOUNTER → 2024-02-18 08:01 | Outpatient (CLI) | payer OTHER, SELFPAY ==
--- NOTE | 2024-02-18 08:30 | DI.MRI.S_ITS ---
PROCEDURE: MR LUMBAR SPINE WO CON INDICATIONS: debilitating LBP TECHNIQUE: Noncontrast sagittal T1 spin echo and T2 fast echo, sagittal STIR, and T2 fast spin echo through the lumbar spine. In cases with scoliosis, additional coronal T2 fast spin echo may be performed. COMPARISON: None. FINDINGS: Image quality: Excellent. Alignment and Curvature: Straightening of the normal lumbar lordosis. Minimal anterolisthesis of L3 on L4. Bone Marrow: Marrow is of normal overall signal. No acute vertebral body compression fractures. Spinal Cord: Conus medullaris terminates at the L1 level. Visualized cord demonstrates normal signal and size. Paraspinous Soft Tissues: No paravertebral masses. T12-L1: Disc desiccation height loss. No central canal or neural foraminal stenosis. L1-L2: Disc desiccation and height loss. Mild disc bulge and small superimposed central disc protrusion. Facet arthropathy. No central canal or neural foraminal stenosis. L2-L3: Facet arthropathy. No central canal or neural foraminal stenosis. L3-L4: Disc desiccation and mild disc bulge. Facet arthropathy and thickening of ligamentum flavum. Epidural lipomatosis. Left-sided synovial cyst. Moderate central canal stenosis. Severe narrowing of the left lateral recess with possible impingement of the descending left L4 nerve root. Mild bilateral neural foraminal stenosis. L4-L5: Disc desiccation height loss. Diffuse disc bulge with left paracentral and foraminal disc protrusion. Mild central canal stenosis. Moderate left and mild right neural foraminal stenosis. L5-S1: Disc desiccation. Facet arthropathy. No central canal stenosis. Mild bilateral neural foraminal stenosis. IMPRESSION: 1. Multilevel degenerative changes of the lumbar spine as described above. 2. Moderate central canal stenosis L3-L4. Severe narrowing of the left lateral recess at L3-L4 with possible impingement of the descending left L4 nerve root. 3. Moderate left neural foraminal stenosis at L4-5. Multilevel mild neural foraminal stenosis as above. Dictated by: John Arce M.D. on 02/18/2024 at 9:08 Approved by: John Arce M.D. on 02/18/2024 at 9:12
== END ==
LOC: MRI 08:01
PROVIDERS: PCP Physician Assistant Medical; Referring Provider Physical Medicine & Rehabilitation; Visit Provider Physical Medicine & Rehabilitation
DX: M47.816 Spondylosis without myelopathy or radiculopathy, lumbar region (principal); M47.817 Spondylosis without myelopathy or radiculopathy, lumbosacral region; M48.061 Spinal stenosis, lumbar region without neurogenic claudication; M48.07 Spinal stenosis, lumbosacral region
CPT/HCPCS: 72148

== ENCOUNTER 2024-03-02 09:39 | Outpatient (CLI) | payer OTHER, SELFPAY ==
[2024-03-02] VITALS (8 sets, daily range): BP systolic 125–136; BP diastolic 66–89; PULSE 76–84; RESP 14–20; TEMP 36.1; O2SAT 95–98
--- NOTE | 2024-03-02 10:15 | DI.RAD.S_ITS ---
PROCEDURE: PAIN L/S TRANSFORAM INJECT MEHUL COMPARISON: [facility], MR, MR LUMBAR SPINE WO CON, 02/18/2024, 8:15. [facility], CR, XR LUMBAR SPINE MIN 4V, 01/27/2024, 12:28. CR, XR LUMBAR SPINE MIN 4V, 08/25/2023, 11:51. INDICATIONS: Bilateral L3-4 transforaminal KERLINE FINDINGS: 6 intraoperative fluoroscopy images demonstrate needle placement at L3-L4. IMPRESSION: Fluoroscopy for pain management. Dictated by: Nurys Bartholomew M.D. on 03/02/2024 at 11:40 Approved by: Nurys Bartholomew M.D. on 03/02/2024 at 11:41
[2024-03-02] MEDS: MIDAZOLAM 2 MG/2 ML VIAL IV (11:04)
[2024-03-02] MEDS: BUPIVACAINE 0.25% (PF) VIAL 2 ML INJ (11:07)
[2024-03-02] MEDS: BETAMETHASONE 30 MG/5 ML MDV 6 MG INJ (11:07)
[2024-03-02] MEDS: iopamidoL 15 ML VIAL 3 ML INJ (11:07)
[2024-03-02] MEDS: DEXAMETHASONE 10 MG/ML VIAL INJ (11:08)
--- NOTE | 2024-03-02 11:27 | P.PCN_ITS ---
Date/Time/Diagnoses Date of procedure: 03/02/24 Time of procedure: 11:27 Pre-procedure diagnosis: 1. FORAMINAL STENOSIS WITH LE SYMPTOMS Post-procedure diagnosis: same Procedure Notes Procedure: 1. FLUOROSCOPICALLY GUIDED CONTRAST CONTROLLED TRANSFORAMINAL EPIDURAL STEROID INJECTION - BILATERAL L3/4 TFESI Indications: Jacek is referred by NIXON Richardson for treatment of Foraminal Stenosis with bilateral LE Symptoms Physician: Edgardo Torres Total Fluoroscopy time (seconds): 15 Total sedation minutes: 16 Complications: none Procedure in detail & Post-procedure care: FINDINGS Foraminal Nerve Root Compression secondary to disc disease and facet hypertrophy DESCRIPTION OF PROCEDURE Following review of allergy and review of potential side effects and complications, including, but not necessarily limited to, infection, allergic reaction, local tissue breakdown, stroke, temporary or permanent nerve injury, paralysis, and possible , the patient indicated that the patient understood and agreed to proceed. An informed consent document was signed by the patient, witnessed by a nurse, and placed in the patient's chart. Additionally, other treatment options including medications, modalities, and physical therapy were reviewed with the patient. After review of previous anaesthesic history and IV conscious sedation the patient was deemed safe to proceed with today?s procedure with IV conscious sedation as ASA class II designation. Safety time-out was performed to confirm patient ID, procedure to be performed and site of procedure. IV sedation was accomplished with a combination of 2mg of Versed was administered by the RN after DO order, titrated to patient comfort during the course of the procedure while the patient remained responsive to all verbal commands In the prone position following sterile prep and drape of the lumbar region, the right L3/4 posterior neuroforamen was identified fluoroscopically. The skin was anesthetized via a 25-gauge 1.5-inch needle with 1% lidocaine solution. At this point, a 25-gauge 3.5-inch spinal needle was atraumatically introduced and advanced under fluoroscopic guidance through the posterior right L3/4 neuroforamen to approximately the anterior aspect of the canal. Depth was confirmed on lateral view. Following negative aspiration, injection of approximately 1.5cc of Isovue 200 under live fluoroscopy in the AP view confirmed excellent flow along the nerve root, into the epidural space without vascular or intrathecal uptake observed Radiological data, including multiple fluoroscopic views of the lumbosacral spine, reveal a spinal needle at the right L3/4 posterior neuroforamen. Subsequent views show flow of contrast material flowing superiorly and inferiorly along the nerve root confirming epidural flow. Subsequently, a test dose of 1.5cc of 1% lidocaine solution was administered and patient was observed for two minutes for signs or symptoms of complications, including abdominal pain, shortness of breath, bilateral upper or lower e xtremity weakness, nausea and vomiting, prior to steroid injection. At this point, a total of 2cc or 10mg of dexamethasone and 6mg betamethasone was injected without incident. Attention was then refocused to the left L3/4 level where the identical procedure was replicated. The procedure tolerated the procedure well without signs or symptoms of complications prior to transfer to the recovery area continued monitoring without incident. The patient was then transferred to the recovery area where they were observed for an appropriate time after the injection. The patient reported a VAS score of 7 prior to the procedure and a post-procedure VAS of 0. POST OP INSTRUCTIONS The patient was provided a Pain Log to continue to record their response to the target-specific procedure prior to follow-up visit with their referring physician. Additionally, specific post-injection care instructions and a contact number to our office were provided if concerns arise regarding possible complications associated with the procedure are suspected.
== END 2024-03-02 11:43 | disposition home or self-care (01) ==
PROVIDERS: PCP Physician Assistant Medical; Referring Provider Physical Medicine & Rehabilitation; Visit Provider Physical Medicine & Rehabilitation
DX: M48.061 Spinal stenosis, lumbar region without neurogenic claudication (principal); M51.16 Intervertebral disc disorders with radiculopathy, lumbar region; M47.26 Other spondylosis with radiculopathy, lumbar region
CPT/HCPCS: 64483; 99152; J0702; J1100; J2250; J3490

== ENCOUNTER → 2024-03-27 15:15 | Outpatient (CLI) | payer OTHER, SELFPAY ==
--- NOTE | 2024-03-27 15:16 | DI.RAD.S_ITS ---
PROCEDURE: XR HIP W PEL IF DONE MEHUL MIN 4V INDICATIONS: Left hip abductor tendon snapping TECHNIQUE: AP pelvis with lateral view(s) of the bilateral hip(s). COMPARISON: None. FINDINGS: Bones: Normal mineralization. Left hip arthroplasty components are in place. No periprosthetic lucency identified. The joint remains congruent. There are mild degenerative sclerotic and spurring changes in the right acetabulum. Right femoral head remains spherical. Soft tissues: The visualized bowel gas pattern is normal. No suspicious soft tissue calcifications. IMPRESSION: No acute bony abnormality. Left hip prosthesis without radiographic evidence of loosening. Mild degeneration at the right femoroacetabular joint. Dictated by: Cele Hernandez M.D. on 03/27/2024 at 23:20 Approved by: Cele Hernandez M.D. on 03/27/2024 at 23:22
== END ==
PROVIDERS: PCP Physician Assistant Medical; Referring Provider Physical Medicine & Rehabilitation; Visit Provider Physical Medicine & Rehabilitation
DX: M07.652 Enteropathic arthropathies, left hip (principal); Z96.642 Presence of left artificial hip joint
CPT/HCPCS: 73522

== ENCOUNTER 2024-05-18 07:16 | Outpatient (CLI) | payer OTHER, SELFPAY ==
[2024-05-18] VITALS (8 sets, daily range): BP systolic 110–129; BP diastolic 55–78; PULSE 78–85; RESP 16–24; TEMP 36.6; O2SAT 95–97
--- NOTE | 2024-05-18 08:00 | DI.RAD.S_ITS ---
PROCEDURE: PAIN L/S TRANSFORAMINAL INJECT INDICATIONS: SPONDYLOSIS COMPARISON: None. FINDINGS: Fluoroscopic spot filming was performed to verify placement of spinal needles at the right L3-L4 and L4-L5 level(s), as labeled on the films. Appropriate location(s) of the needle tip(s) was confirmed by injection of iodinated contrast. IMPRESSION: Intraoperative guidance provided. Dictated by: Abelardo Diaz M.D. on 05/18/2024 at 22:51 Approved by: Abelardo Diaz M.D. on 05/18/2024 at 22:51
[2024-05-18] MEDS: MIDAZOLAM 2 MG/2 ML VIAL IV (08:23)
[2024-05-18] MEDS: DEXAMETHASONE 10 MG/ML VIAL 20 MG INJ (08:32)
[2024-05-18] MEDS: iopamidoL 15 ML VIAL 3 ML INJ (08:32)
[2024-05-18] MEDS: BUPIVACAINE 0.25% (PF) VIAL 2 ML INJ (08:33)
[2024-05-18] MEDS: BETAMETHASONE 30 MG/5 ML MDV 12 MG INJ (08:33)
--- NOTE | 2024-05-18 08:47 | P.PCN_ITS ---
Date/Time/Diagnoses Date of procedure: 05/18/24 Time of procedure: 08:47 Pre-procedure diagnosis: 1. FORAMINAL STENOSIS WITH LE SYMPTOMS Post-procedure diagnosis: same Procedure Notes Procedure: 1. FLUOROSCOPICALLY GUIDED CONTRAST CONTROLLED TRANSFORAMINAL EPIDURAL STEROID INJECTION - RIGHT L3/4 TFESI Indications: Jacek is referred by KAYE Richardson for treatment of Foraminal Stenosis with right LE Symptoms Physician: Edgardo Torres Total Fluoroscopy time (seconds): 16 Total sedation minutes: 20 Complications: none Procedure in detail & Post-procedure care: FINDINGS Foraminal Nerve Root Compression secondary to disc disease and facet hypertrophy DESCRIPTION OF PROCEDURE Following review of allergy and review of potential side effects and complications, including, but not necessarily limited to, infection, allergic reaction, local tissue breakdown, stroke, temporary or permanent nerve injury, paralysis, and possible , the patient indicated that the patient understood and agreed to proceed. An informed consent document was signed by the patient, witnessed by a nurse, and placed in the patient's chart. Additionally, other treatment options including medications, modalities, and physical therapy were reviewed with the patient. After review of previous anaesthesic history and IV conscious sedation the patient was deemed safe to proceed with today?s procedure with IV conscious sedation as ASA class II designation. Safety time-out was performed to confirm patient ID, procedure to be performed and site of procedure. IV sedation was accomplished with a combination of 2mg of Versed was administered by the RN after DO order, titrated to patient comfort during the course of the procedure while the patient remained responsive to all verbal commands In the prone position following sterile prep and drape of the lumbar region, the right L3/4 posterior neuroforamen was identified fluoroscopically. The skin was anesthetized via a 25-gauge 1.5-inch needle with 1% lidocaine solution. At this point, a 25-gauge 3.5-inch spinal needle was atraumatically introduced and advanced under fluoroscopic guidance through the posterior right L3/4 neuroforamen to approximately the anterior aspect of the canal. Depth was confirmed on lateral view. Following negative aspiration, injection of approximately 1.5 cc of Isovue 200 under live fluoroscopy in the AP view confirm ed excellent flow along the nerve root, into the epidural space without vascular or intrathecal uptake observed Radiological data, including multiple fluoroscopic views of the lumbosacral spine, reveal a spinal needle at the right L3/4 posterior neuroforamen. Subsequent views show flow of contrast material flowing superiorly and inferiorly along the nerve root confirming epidural flow. Subsequently, a test dose of 1.5 cc of 1% lidocaine solution was administered and patient was observed for two minutes for signs or symptoms of complications, including abdominal pain, shortness of breath, bilateral upper or lower extremity weakness, nausea and vomiting, prior to steroid injection. At this point, a total of 2cc or 10mg of dexamethasone and 6mg of betamethasone was injected without incident. The patient tolerated the procedure well without signs or symptoms of complications prior to transfer to the recovery area continued monitoring without incident. The patient was then transferred to the recovery area where they were observed for an appropriate time after the injection. The patient reported a VAS score of 7 prior to the procedure and a post-procedure VAS of 0. POST OP INSTRUCTIONS The patient was provided a Pain Log to continue to record their response to the target-specific procedure prior to follow-up visit with their referring physic hans. Additionally, specific post-injection care instructions and a contact number to our office were provided if concerns arise regarding possible complications associated with the procedure are suspected.
--- NOTE | 2024-05-18 08:48 | P.PCN_ITS ---
Date/Time/Diagnoses Date of procedure: 05/18/24 Time of procedure: 08:48 Pre-procedure diagnosis: 1. FORAMINAL STENOSIS WITH LE SYMPTOMS Post-procedure diagnosis: same Procedure Notes Procedure: 1. FLUOROSCOPICALLY GUIDED CONTRAST CONTROLLED TRANSFORAMINAL EPIDURAL STEROID INJECTION - RIGHT L4/5 TFESI Indications: Jacek is referred by KAYE Richardson for treatment of Foraminal Stenosis with Right LE Symptoms Physician: Edgardo Torres Total Fluoroscopy time (seconds): 16 Total sedation minutes: 20 Complications: none Procedure in detail & Post-procedure care: FINDINGS Foraminal Nerve Root Compression secondary to disc disease and facet hypertrophy DESCRIPTION OF PROCEDURE Following review of allergy and review of potential side effects and complications, including, but not necessarily limited to, infection, allergic reaction, local tissue breakdown, stroke, temporary or permanent nerve injury, paralysis, and possible , the patient indicated that the patient understood and agreed to proceed. An informed consent document was signed by the patient, witnessed by a nurse, and placed in the patient's chart. Additionally, other treatment options including medications, modalities, and physical therapy were reviewed with the patient. After review of previous anaesthesic history and IV conscious sedation the patient was deemed safe to proceed with today?s procedure with IV conscious sedation as ASA class II designation. Safety time-out was performed to confirm patient ID, procedure to be performed and site of procedure. IV sedation was accomplished with a combination of 2mg of Versed was administered by the RN after DO order, titrated to patient comfort during the course of the procedure while the patient remained responsive to all verbal commands In the prone position following sterile prep and drape of the lumbar region, the right L4/5 posterior neuroforamen was identified fluoroscopically. The skin was anesthetized via a 25-gauge 1.5-inch needle with 1% lidocaine solution. At this point, a 25-gauge 3.5-inch spinal needle was atraumatically introduced and advanced under fluoroscopic guidance through the posterior right L4/5 neuroforamen to approximately the anterior aspect of the canal. Depth was confirmed on lateral view. Following negative aspiration, injection of approximately 1.5cc of Isovue 200 under live fluoroscopy in the AP view confi rmed excellent flow along the nerve root, into the epidural space without vascular or intrathecal uptake observed Radiological data, including multiple fluoroscopic views of the lumbosacral spine, reveal a spinal needle at the right L4/5 posterior neuroforamen. Subsequent views show flow of contrast material flowing superiorly and inferiorly along the nerve root confirming epidural flow. Subsequently, a test dose of 1.5 cc of 1% lidocaine solution was administered and patient was observed for two minutes for signs or symptoms of complications, including abdominal pain, shortness of breath, bilateral upper or lower extremity weakness, nausea and vomiting, prior to steroid injection. At this point, a total of 2cc or 10mg of dexamethasone and 6mg of betamethasone was injected without incident. The procedure tolerated the procedure well without signs or symptoms of complications prior to transfer to the recovery area continued monitoring without incident. The patient was then transferred to the recovery area where they were observed for an appropriate time after the injection. The patient reported a VAS score of 7 prior to the procedure and a post- procedure VAS of 0. POST OP INSTRUCTIONS The patient was provided a Pain Log to continue to record their response to the target-specific procedure prior to follow-up visit with their referring phy sician. Additionally, specific post-injection care instructions and a contact number to our office were provided if concerns arise regarding possible complications associated with the procedure are suspected.
--- NOTE | 2024-05-18 09:31 | PC.NURSE ---
Late Entry: Recovery from procedure 0847: Patient able to stand but unable to take steps on R leg without buckling. 2 person max assist for the patient to mobilize from wheelchair. 0910: Patient able to stand, R leg weakness still noted. Patient attempted to march in place and legs buckled. Patient able to sit in recovery chair. 0920: Patient able to stand and march in place with a small amount of weakness noted by this RN. Patient took steps but complained of being wobbly. 0935: Patient able to stand and take steps with stand-by assist. Patient states he feels much more steady. Patient states that his Chacha will be at home with him today for awhile. Patient discharged home.
== END 2024-05-18 09:40 | disposition home or self-care (01) ==
LOC: RAD 07:16
PROVIDERS: PCP Physician Assistant Medical; Referring Provider Physical Medicine & Rehabilitation; Visit Provider Physical Medicine & Rehabilitation
DX: M48.061 Spinal stenosis, lumbar region without neurogenic claudication (principal); M51.16 Intervertebral disc disorders with radiculopathy, lumbar region; M47.26 Other spondylosis with radiculopathy, lumbar region
CPT/HCPCS: 64483; 64484; 99152; J0702; J1100; J2250; J3490

== ENCOUNTER → 2024-11-13 09:29 | Outpatient (CLI) | payer MEDICARE, SELFPAY ==
--- NOTE | 2024-11-13 09:32 | DI.RAD.S_ITS ---
PROCEDURE: XR SACROILIAC JOINT MIN 3V INDICATIONS: SI JOINT PAIN TECHNIQUE: 3 views of the sacroiliac joints were acquired. COMPARISON: None. FINDINGS: Bones: No bony erosions or ankylosis. No suspicious bony lesions. No fractures. Mild periarticular sclerosis noted, right greater than left. No ankylosis. Soft tissues: Overlying bowel gas pattern is normal. No suspicious soft tissue densities. IMPRESSION: Subtle sclerosis without ankylosis could reflect mild sacroiliitis. Approved by: Victor M Canela M.D. on 11/13/2024 at 12:21
== END ==
PROVIDERS: PCP Physician Assistant Medical; Referring Provider Physical Medicine & Rehabilitation; Visit Provider Physical Medicine & Rehabilitation
DX: M53.3 Sacrococcygeal disorders, not elsewhere classified (principal); M48.02 Spinal stenosis, cervical region; M47.892 Other spondylosis, cervical region; M16.11 Unilateral primary osteoarthritis, right hip; M47.26 Other spondylosis with radiculopathy, lumbar region; M75.41 Impingement syndrome of right shoulder; M75.42 Impingement syndrome of left shoulder; M07.652 Enteropathic arthropathies, left hip; G95.0 Syringomyelia and syringobulbia
CPT/HCPCS: 72202; 99213

== ENCOUNTER 2024-11-21 09:41 | Outpatient (CLI) | payer MEDICARE, SELFPAY ==
[2024-11-21] VITALS (7 sets, daily range): BP systolic 117–124; BP diastolic 66–78; PULSE 71–78; RESP 16–20; TEMP 36.1; O2SAT 96–98
--- NOTE | 2024-11-21 10:32 | DI.RAD.S_ITS ---
PROCEDURE: PAIN SI JOINT INJECTION MEHUL INDICATIONS: Bilateral SI joint injection COMPARISON: None. FINDINGS/IMPRESSION: Fluoroscopic spot filming was performed to verify placement of spinal needles at the sacroiliac joints as labeled on the films. Appropriate location(s) of the needle tip(s) was confirmed by injection of iodinated contrast. Dictated by: Joshua Alarcon M.D. on 11/21/2024 at 17:14 Approved by: Joshua Alarcon M.D. on 11/21/2024 at 17:14
[2024-11-21] MEDS: MIDAZOLAM 2 MG/2 ML VIAL IV (11:05)
[2024-11-21] MEDS: BETAMETHASONE 30 MG/5 ML MDV 12 MG INJ ×2 (11:11→11:12)
[2024-11-21] MEDS: BUPIVACAINE 0.5% (PF) 10 ML VIAL 5 ML INJ (11:12)
[2024-11-21] MEDS: iopamidoL 15 ML VIAL 3 ML INJ (11:13)
--- NOTE | 2024-11-21 11:25 | P.PCN_ITS ---
Date/Time/Diagnoses Date of procedure: 11/21/24 Time of procedure: 11:25 Pre-procedure diagnosis: Sacroiliac joint pain/DJD Post-procedure diagnosis: same Procedure Notes Procedure: Fluoroscopic guided contrast controlled bilateral sacroiliac joint injection Indications: Jacek is referred by NIXON Richardson for treatment of bilateral sacroiliac joint DJD Physician: Edgardo Torres Total Fluoroscopy time (seconds): 17 Total sedation minutes: 16 Complications: none Procedure in detail & Post-procedure care: Description of procedure Fluoroscopic guided, contrast controlled bilateral sacroiliac joint injection Following review of allergies and review of potential side effects and complications, including, but not necessarily limited to, infection, allergic reaction, local tissue breakdown, temporary as well as permanent nerve injury, paralysis, stroke and possible , the patient indicated that they understood and agreed to proceed. An informed consent was signed by the patient, witnessed by a nurse, and placed in the patient's chart. Additionally, other treatment options including modalities, medications, and physical therapy were reviewed with the patient. After review of previous anaesthesic history and IV conscious sedation the patient was deemed safe to proceed with today?s procedure with IV conscious sedation as ASA class II designation. Safety time-out was performed to confirm patient ID, procedure to be performed and site of procedure. IV sedation was accomplished with a combination of 2mg Versed were administered by the RN after DO order, titrated to patient comfort during the course of the procedure while the patient remained responsive to all verbal commands In the prone position following sterile prep and drape of the pelvic region, the hyper lucency on in the inferior aspect of the sacroiliac joint was identified fluoroscopically the skin was anesthetized be a 25 gauge 1.5 inch needle with approximately 2cc of 1% lidocaine solution. At this point, a 22 gauge 3 in spi nal needle was atraumatically introduced and advanced under fluoroscopic guidance into the inferior aspect of the right sacroiliac joint. Following negative aspiration, approximately 0.3cc of Isovue-300 was injected confirming intra-articular placement without vascular uptake. Radiographic data, including multiple fluoroscopic views of the pelvis, reveals a spinal needle in the sacroiliac joint hyper lucent zone. Subsequent view show flow contrast tear superiorly and inferiorly within the joint capsule without vascular intrathecal uptake. At this point a total of 1cc of 0.5% Marcaine was combined with 1cc of 6mg of betamethasone was injected without incident. Attention was then refocused the left sacroiliac joint where the procedure was replicated. The procedure tolerated the procedure well without signs or symptoms of complications prior to transfer to the recovery area continued monitoring without incident. The patient was then transferred to the recovery area with a bur observed for an appropriate time after the injection. The patient reverted a vas score of 7 prior to the procedure and post-procedure vas of 1. Postop instructions The patient was provided with a pain like to continue to record the patient's response to the target specific procedure prior to the patient's follow-up visit with the referring physician. Additionally, specific post injection care instructions and a contact number to our office were provided if concerns arise regarding the possible complications associated with procedure are suspected.
== END 2024-11-21 11:37 | disposition home or self-care (01) ==
LOC: RAD 09:43
PROVIDERS: PCP Physician Assistant Medical; Referring Provider Physical Medicine & Rehabilitation; Visit Provider Physical Medicine & Rehabilitation
DX: M53.3 Sacrococcygeal disorders, not elsewhere classified (principal); M46.1 Sacroiliitis, not elsewhere classified
CPT/HCPCS: 27096; 77002; 99152; J0702; J2250

== ENCOUNTER → 2024-12-19 06:55 | Outpatient (CLI) | payer MEDICARE, SELFPAY ==
--- NOTE | 2024-12-19 06:56 | DI.ECHO.S_ITS ---
[facility] : : [id number] : : [place] : : [id number] : : Phone: [phone] Echocardiogram Report + + :Name: ART JACKSON Study Date: 12/19/2024 Height: 71 in : :[facility] ReadingLocation: Weight: 230 lb : : Gender: Male BSA: 2.2 m2 : :: 1960 Age: 64 yrs BP: 125/89 mmHg: :Reason For Study: HEART MURMUR : :Ordering Physician: JOCE, : :ZAC Performed By: Sherrell Parra : :Referring: ZAC HOBSON : + + Interpretation Summary Normal sinus rhythm. Normal LV size and wall thickness; normal wall motion and LV systolic function. EF is 60-65%. Normal chamber sizes. Aortic sclerosis without stenosis; otherwise no significant valvular abnormalities. No prior study available for ocmparison. Procedure: A two-dimensional transthoracic echocardiogram with color flow and Doppler was performed. The study quality was technically adequate. There is no prior echocardiogram noted for this patient. The patient was in sinus rhythm with heart rates between 68-81 bpm during the exam. Left Ventricle: The left ventricle is normal in size and wall thickness. The ejection fraction is estimated to be 60-65%. Right Ventricle: The right ventricle is normal in size and function. Atria: The left atrial size is normal. Right atrial size is normal. There is no Doppler evidence for an interatrial shunt. Mitral Valve: The mitral valve leaflets appear to open well. There is mild mitral regurgitation. Aortic Valve: The aortic valve is trileaflet. The aortic valve is mildly calcified. There is mild aortic valve sclerosis. There is no aortic valve stenosis. No aortic regurgitation is present. Tricuspid Valve: The tricuspid valve leaflets are thin and pliable. There is mild tricuspid regurgitation. The right ventricular systolic pressure is estimated to be at least 28 mmHg based on an estimated right atrial pressure of 8 mm Hg. Pulmonic Valve: The pulmonic valve is not well visualized. There is no pulmonic valvular regurgitation. Great Vessels: The aortic root is normal size. The dimensions of the ascending aorta are normal. The IVC is of normal diameter and collapses greater than 50% with a sniff. This suggests a low right atrial pressure of 3 mm Hg. Pericardium/ Pleura There is no pericardial effusion. There is no pleural effusion. MMode/2D Measurements & Calculations LVIDd: 4.7 cm LVOT diam: 2.3 cm LVIDs: 3.3 cm Ao root diam: 3.1 cm FS: 29.4 % asc Aorta Diam: 3.5 cm EPSS: 0.56 cm Ao Arch Diam (Prox Trans): 3.6 cm IVSd: 0.93 cm LVPWd: 0.89 cm LV ferguson. diameter/BSA (cm/m^2): 2.1 LV sys. diameter/BSA (cm/m^2): 1.5 LA A2 area: 20.0 cm2 RA long axis: 4.7 cm LA A4 area: 18.3 cm2 RA area: 16.2 cm2 LA length (vol): 5.2 cm RA vol: 47.2 ml LA vol: 59.9 ml RA : 21.1 ml/m2 LA vol index: 26.8 ml/m2 IVC diam: 1.9 cm RVD1 (basal): 3.6 cm RVD2 (mid): 3.3 cm TAPSE: 1.7 cm Doppler Measurements & Calculations Ao V2 max: 193.9 cm/sec LVOT Max Steven: 128.4 cm/sec Ao V2 mean: 126.7 cm/sec LV V1 max P.6 mmHg Ao max P.0 mmHg LV V1 VTI: 22.7 cm Ao mean P.2 mmHg CAROL(I,D): 3.1 cm2 Ao V2 VTI: 29.7 cm CAROL(V,D): 2.7 cm2 sev ratio: 0.76 CAROL indexed to BSA (cm^2/m^2): 1.4 MV E max steven: 93.2 cm/sec TR max steven: 247.9 cm/sec MV A max steven: 83.8 cm/sec TR max P.6 mmHg MV E/A: 1.1 PA V2 max: 93.8 cm/sec Med Peak E' Steven: 10.5 cm/sec PA V2 mean: 65.6 cm/sec E/E' med: 8.9 PA mean P.9 mmHg Lat Peak E' Steven: 9.5 cm/sec PA pr(Accel): 35.3 mmHg E/E' lat: 9.8 E/e' average: 9.3 MV dec time: 0.19 sec SV(LVOT): 90.8 ml Electronically signed by: Dalila Hensley M.D. on Reading Physician:12/20/2024 03:05 AM
== END ==
PROVIDERS: PCP Physician Assistant Medical; Referring Provider Physician Assistant Medical; Visit Provider Physician Assistant Medical
DX: I08.3 Combined rheumatic disorders of mitral, aortic and tricuspid valves (principal); R01.1 Cardiac murmur, unspecified
CPT/HCPCS: 93306

== ENCOUNTER → 2025-09-14 10:26 | Outpatient (CLI) | payer MEDICARE, SELFPAY ==
--- NOTE | 2025-09-14 10:28 | DI.RAD.S_ITS ---
PROCEDURE: XR CERVICAL SPINE 4V OR 5V INDICATIONS: NECK PAIN TECHNIQUE: 5 views of the cervical spine acquired. COMPARISON: [facility], CR, XR CERVICAL SPINE 4V OR 5V, 03/06/2020, 8:46. FINDINGS: Bones: No fractures or dislocations to the T1 level. Chronic mild grade 1, degenerative anterolisthesis of C4 on C5. Moderate disc space narrowing at C5-6 and C6-7. Multilevel facet and uncovertebral arthrosis throughout the cervical spine. Oblique images demonstrate moderate bony neural foraminal stenosis on the right at C3-4, C4-5, C5-6 and C6-7 and on the left at C3-4, C5-6.. Soft tissues: No prevertebral soft tissue swelling. IMPRESSION: No acute compression deformity. Multilevel cervical spondylosis which results in bony neural foraminal stenosis as described. Dictated by: Malik Powell M.D. on 09/14/2025 at 12:35 Approved by: Malik Powell M.D. on 09/14/2025 at 12:37
== END ==
PROVIDERS: PCP Physician Assistant Medical; Referring Provider Physical Medicine & Rehabilitation; Visit Provider Physical Medicine & Rehabilitation
DX: M47.22 Other spondylosis with radiculopathy, cervical region (principal); M48.02 Spinal stenosis, cervical region
CPT/HCPCS: 72050

== ENCOUNTER → 2025-09-19 10:32 | Outpatient (CLI) | payer MEDICARE, SELFPAY ==
--- NOTE | 2025-09-19 10:41 | DI.MRI.S_ITS ---
PROCEDURE: MR CERVICAL SPINE WO CON INDICATIONS: Cervical stenosis TECHNIQUE: Noncontrast sagittal T1 spin echo and T2 fast spin echo, sagittal STIR, foraminal oblique sagittal T2 fast spin echo, and axial gradient echo or T2 fast spin echo through the cervical spine. COMPARISON: [facility], MR, MR THORACIC SPINE WO/W CON, 06/14/2020, 16:55. [facility], MR, MR CERVICAL SPINE WO CON, 05/03/2020, 19:22. FINDINGS: Image quality: Excellent Straightening of the cervical spine. Mild anterolisthesis C4 on C5. Mild retrolisthesis of C5 on C6. Vertebral body height of cervical spine is well maintained. Multilevel mild fibrovascular endplate change, most pronounced at C6-7. Multilevel disc bulge and disc desiccation. Cervical cord: Normal in signal. T2 hyperintensity at the visualized upper thoracic spine, previously characterized as prominent central canal on prior thoracic MRI on 06/14/2020, grossly unchanged from prior exam. Right neural foraminal stenosis: Severe at C3-4, C4-5, C5-6, C6-7. Left neural foraminal stenosis: Severe at C3-4, moderate at C4-5, severe at C5- 6, C6-7. Axial images: C2-3: Mild bilateral facet arthropathy. No central canal stenosis. C3-4: Bilateral facet arthropathy, right greater than left. Bilateral uncovertebral arthropathy. No central canal stenosis. C4-5: Posterior disc osteophyte complex. Mild central canal stenosis. Bilateral uncovertebral and facet arthropathy, right greater than left. C5-6: Posterior disc osteophyte complex. Mild central canal stenosis. Bilateral uncovertebral and facet arthropathy. C6-7: Posterior disc osteophyte complex. Moderate central canal stenosis. Bilateral uncovertebral facet arthropathy. C7-T1: No central canal or neural foraminal stenosis. other soft tissue findings: Unremarkable IMPRESSION: 1. Multilevel degenerative changes, most pronounced at C6-7, where is moderate central canal stenosis and severe bilateral neural foraminal stenosis, progressed. 2. Additional multifocal severe neural foraminal stenosis as described above. 3. Prominent central canal at the upper thoracic cord, unchanged from prior exam. Dictated by: Sandrine Hanks M.D. on 09/19/2025 at 17:13 Approved by: Sandrine Hanks M.D. on 09/19/2025 at 17:25
== END ==
LOC: MRI 10:32
PROVIDERS: PCP Physician Assistant Medical; Referring Provider Physical Medicine & Rehabilitation; Visit Provider Physical Medicine & Rehabilitation
DX: M47.22 Other spondylosis with radiculopathy, cervical region (principal); M43.12 Spondylolisthesis, cervical region; M48.02 Spinal stenosis, cervical region
CPT/HCPCS: 72141